=== PATIENT | female | born 1985 | race American Indian/Alaskan Native ===

== ENCOUNTER 2019-02-25 12:29 | Emergency (ER) | payer SELFPAY ==
[2019-02-25 12:35] VITALS: BP 110/62
--- NOTE | 2019-02-25 12:40 | Emergency Department Report ---
Blank Doc - Documentation Documentation: 33 y/o female presents to ED c/o of needing a Asthma evaluation for a job she needs. No symptoms but has frequent bouts of asthma flares and having trouble with inhaler while she waits on insurance. I explained the limitaitons of the ED and that we are unable to complete her pulmonary documentation in the ED. Plan. Evaluate her current asthma status
== END 2019-02-25 13:23 | disposition left against medical advice (07) ==
LOC: ED 12:29
DX: J45.909 Unspecified asthma, uncomplicated (principal); Z53.21 Procedure and treatment not carried out due to patient leaving prior to being seen by health care provider